=== PATIENT | male | born 1970 | race Caucasian/White ===

== ENCOUNTER 2016-10-07 19:33 | Emergency (ER) | payer BC ==
[~2016-10-07] VITALS: Ht 172.7 cm; Wt 79.2 kg
[~2016-10-07 19:33] MED LIST: ATOR10TA88 PO; BUPR-79 PO; ESCI1TAB6 PO
[2016-10-07 19:39] VITALS: Ht 172.7 cm; Wt 79.2 kg
[2016-10-07] MEDS ORDERED: MoRPHine SULFATE 4 MG/ML 1 ML CARP\\VIAL IV STA (20:14)
[2016-10-07] MEDS ORDERED: ACETAMINOPHEN 325 MG TAB PO STA (20:14)
[2016-10-07] MEDS ORDERED: SODIUM CHLORIDE 0.9% 1000ML 1,000 ML IV STA (20:14)
[2016-10-07] MEDS ORDERED: ONDANSETRON INJ 2 MG/ML 2 ML VIAL IV STA (20:14)
[2016-10-07] MEDS ORDERED: SODIUM CHLORIDE 0.9% 1000ML 1,000 ML IV ONE (20:14)
--- NOTE | 2016-10-07 20:28 | EMERGENCY ROOM VISIT NOTE ---
History Report prepared by Lesia: Kaye Johnson Under the Supervision of: Dr. Gianni Maldonado M.D. First contact with patient: 19:58 Chief Complaint: ABDOMINAL PAIN Stated Complaint: ABD PAIN History of Present Illness The patient is a 45 year old male who presents to the Emergency Room with complaints of waxing and waning abdominal pain beginning yesterday. The patient states that he has been having abdominal pain that is constantly there but worsens in waves. He complains of dysuria, fever, slight testicular pain, and nausea. He denies any back pain, trauma, vomiting, diarrhea, cough, and rash. The patient states that he has a history of hypertension and high cholesterol. He reports that he had an AST repair when he was a senior in high school but has not had any issues since. He notes that his pain is worsened with movement. Source of History: patient, spouse/significant other Onset: yesterday Position: abdomen Timing: waxes/wanes Modifying Factors (Worsening): movement Associated Symptoms: + fevers, + nausea, + urinary symptoms, No cough, No vomiting, No back pain, No diarrhea, No rash Note: Pt complains of slight testicular pain. He denies any trauma. Review of Systems See HPI for pertinent positives & negatives. A total of 10 systems reviewed and were otherwise negative. Past Medical & Surgical Medical Problems: (1) High cholesterol (2) HTN (hypertension) Old medical records were reviewed. Nurse's notes were reviewed and I agree with. Family History No pertinent family history stated. Social History Smoking Status: Never Smoker Marital Status: Housing Status: lives with family Occupation Status: employed Current/Historical Medications Scheduled Atorvastatin (Atorvastatin Calcium), 40 MG PO DAILY Ciprofloxacin Hcl (Cipro), 500 MG PO BID Fluoxetine HCl (Fluoxetine HCl), 10 MG PO DAILY Lisinopril (Zestril), 10 MG PO DAILY Metronidazole (Flagyl), 500 MG PO TID Scheduled PRN Oxycodone Immediate Rel Tab (Roxicodone Ir), 1-2 TAB PO Q4H PRN for Severe Pain Allergies Coded Allergies: No Known Allergies (Unverified , 02/11/15) Physical Exam Vital Signs Date Time Temp Pulse Resp B/P (MAP) Pulse Ox O2 Delivery O2 Flow Rate FiO2 10/07/16 22:36 37.8 90 18 128/82 93 Room Air 10/07/16 21:13 90 18 129/82 96 Room Air 10/07/16 19:39 38.4 94 20 132/84 96 Room Air Physical Exam General: Well developed well nourished non-ill appearing middle aged male in no acute distress, breathing comfortably on room air. Normal speech. He is complaining of lower abdominal pain. HEENT: Normal cephalic atraumatic. Pupils are equal round and reactive to light. Extraocular movements are intact. Oropharynx is pink with moist mucous membranes. No swelling of the mouth lips or tongue. Neck: Supple with a midline trachea. No meningeal signs or stiffness, no JVD or bruits. No Stridor. Chest: Clear to auscultation bilaterally. No wheezes or rhonchi. No increased work of breathing. Heart: regular rate and rhythm. Abdomen: Soft, moderate tenderness in lower abdomen more to the left, nondistended without rebound guarding or rigidity. No peritonitis Extremities: No cyanosis clubbing or edema. No calf tenderness or assymetry Spine/Back. Non tender to palpation. No CVA tenderness Skin: Good turgor without rashes. Neurologic exam: Cranial nerves two through 12 are intact. Motor and sensation are intact and symmetrical throughout. Medical Decision & Procedures ER Provider Diagnostic Interpretation: CT results as stated below per my review and radiologist interpretation: CT SCAN OF THE ABDOMEN AND PELVIS WITH IV CONTRAST FINDINGS: Lung bases: The patient is status post midline sternotomy. The heart is enlarged and without pericardial effusion. The lung bases are clear noting dependent atelectasis. Liver: The contrast-enhanced liver is enlarged, measuring 18 cm in length. The liver demonstrates diffusely diminished attenuation consistent with hepatic steatosis. Fatty sparing is noted adjacent to gallbladder fossa. There is no intrahepatic biliary ductal dilatation. The hepatic veins and portal veins are patent. Gallbladder: Unremarkable. Spleen: Normal in size and attenuation. Pancreas: Moderately atrophic and grossly unremarkable. Adrenal glands: Unremarkable. Kidneys: The contrast enhanced kidneys are normal in size and without hydronephrosis. The kidneys enhance symmetrically. Abdominal vasculature: The abdominal aorta is normal in course and caliber. Bowel: The small bowel and colon are normal in course and caliber. There is mild colonic diverticulosis. There is wall thickening with pericolic inflammation and fluid seen involving the distal descending/proximal sigmoid colon consistent with acute diverticulitis. No diverticular abscess is seen. The appendix is well-visualized and normal. Peritoneum: There is no intraperitoneal free air or abdominal ascites. There is a small fat-containing umbilical hernia. Lymphadenopathy: None. Pelvic viscera: The bladder, prostate, and seminal vesicles are normal as imaged. Surgical clips are noted along the spermatic cord. Skeletal structures: The skeletal structures are osteopenic. No lytic or blastic lesions are seen. IMPRESSION: 1. Findings are consistent with acute diverticulitis involving the distal descending/proximal sigmoid colon. No intraperitoneal free air is seen and there is no evidence of diverticular abscess. 2. Hepatomegaly and hepatic steatosis. 3. Cardiomegaly. 4. Additional findings as above. Electronically signed by: Farhan Pedro M.D. 10/07/2016 9:35 PM Dictated Date/Time: 10/07/2016 9:27 PM Laboratory Results 10/07/16 20:20 Red Blood Count 5.19, Mean Corpuscular Volume 86.9, Mean Corpuscular Hemoglobin 30.6, Mean Corpuscular Hemoglobin Concent 35.3, Mean Platelet Volume 9.0, Neutrophils (%) (Auto) 76.8, Lymphocytes (%) (Auto) 12.4, Monocytes (%) (Auto) 9.7, Eosinophils (%) (Auto) 0.7, Basophils (%) (Auto) 0.1, Neutrophils # (Auto) 6.83, Lymphocytes # (Auto) 1.10, Monocytes # (Auto) 0.86, Eosinophils # (Auto) 0.06, Basophils # (Auto) 0.01 10/07/16 20:20 Test 10/07/16 20:20 10/07/16 20:35 10/07/16 20:41 10/07/16 21:14 White Blood Count 8.89 K/uL (4.8-10.8) Red Blood Count 5.19 M/uL (4.7-6.1) Hemoglobin 15.9 g/dL (14.0-18.0) Hematocrit 45.1 % (42-52) Mean Corpuscular Volume 86.9 fL (80-100) Mean Corpuscular Hemoglobin 30.6 pg (25-34) Mean Corpuscular Hemoglobin Concent 35.3 g/dl (32-36) Platelet Count 135 K/uL (130-400) Mean Platelet Volume 9.0 fL (7.4-10.4) Neutrophils (%) (Auto) 76.8 % Lymphocytes (%) (Auto) 12.4 % Monocytes (%) (Auto) 9.7 % Eosinophils (%) (Auto) 0.7 % Basophils (%) (Auto) 0.1 % Neutrophils # (Auto) 6.83 K/uL (1.4-6.5) Lymphocytes # (Auto) 1.10 K/uL (1.2-3.4) Monocytes # (Auto) 0.86 K/uL (0.11-0.59) Eosinophils # (Auto) 0.06 K/uL (0-0.5) Basophils # (Auto) 0.01 K/uL (0-0.2) RDW Standard Deviation 40.0 fL (36.4-46.3) RDW Coefficient of Variation 12.5 % (11.5-14.5) Immature Granulocyte % (Auto) 0.3 % Immature Granulocyte # (Auto) 0.03 K/uL (0.00-0.02) Est Creatinine Clear Calc Drug Dose 82.0 ml/min Estimated GFR () 93.5 Estimated GFR (Non- 80.6 BUN/Creatinine Ratio 10.3 (10-20) Calcium Level 9.4 mg/dl (8.5-10.1) Total Bilirubin 0.9 mg/dl (0.2-1) Direct Bilirubin 0.2 mg/dl (0-0.2) Aspartate Amino Transf (AST/SGOT) 18 U/L (15-37) Alanine Aminotransferase (ALT/SGPT) 32 U/L (12-78) Alkaline Phosphatase 82 U/L (45-117) Total Protein 7.3 gm/dl (6.4-8.2) Albumin 4.0 gm/dl (3.4-5.0) Lipase 97 U/L (73-393) Bedside Lactic Acid Venous 1.48 mmol/L (0.90-1.70) Bedside Hemoglobin 15.0 g/dl (14.0-18.0) Bedside Hematocrit 44 % (42-52) Bedside Sodium 140 mEq/L (135-144) Bedside Potassium 4.0 mEq/L (3.3-5.0) Bedside Chloride 102 mEq/L (101-112) Bedside Total CO2 25 mEq/l (24-31) Anion Gap 18.0 mmol/L (16-25) Bedside Blood Urea Nitrogen 11 mg/dl (7-18) Bedside Creatinine 1.0 mg/dl (0.6-1.3) Bedside Glucose (other) 96 mg/dl (70-99) Bedside Ionized Calcium (Aguilar) 1.21 mmol/l (1.12-1.32) Urine Color YELLOW Urine Appearance CLEAR (CLEAR) Urine pH 7.5 (4.5-7.5) Urine Specific [place] 1.013 (1.000-1.030) Urine Protein NEG (NEG) Urine Glucose (UA) NEG (NEG) Urine Ketones NEG (NEG) Urine Occult Blood NEG (NEG) Urine Nitrite NEG (NEG) Urine Bilirubin NEG (NEG) Urine Urobilinogen NEG (NEG) Urine Leukocyte Esterase NEG (NEG) Laboratory studies as stated above per my review. Medications Administered Medications (Trade) Dose Ordered Sig/[place] Route Start Time Stop Time Status Last Admin Dose Admin Sodium Chloride 1,000 ml @ 999 mls/hr Q1H1M STAT IV 10/07/16 20:14 10/07/16 21:14 DC 10/07/16 21:05 999 MLS/HR Morphine Sulfate (MoRPHine SULFATE INJ) 4 mg NOW STAT IV 10/07/16 20:14 10/07/16 20:17 DC 10/07/16 21:05 4 MG Ondansetron HCl (Zofran Inj) 4 mg NOW STAT IV 10/07/16 20:14 10/07/16 20:17 DC 10/07/16 21:05 4 MG Acetaminophen (Tylenol Tab) 650 mg NOW STAT PO 10/07/16 20:14 10/07/16 20:17 DC 10/07/16 21:06 650 MG Metronidazole (Flagyl Tab) 500 mg NOW STAT PO 10/07/16 21:52 10/07/16 21:54 DC 10/07/16 22:32 500 MG Ciprofloxacin (Cipro Tab) 500 mg NOW STAT PO 10/07/16 21:52 10/07/16 21:54 DC 10/07/16 22:32 500 MG Oxycodone HCl (Roxicodone Immediate Rel 5MG Home Pack) 1 homepack UD ONCE PO 10/07/16 22:00 10/07/16 22:01 DC 10/07/16 22:33 1 HOMEPA ED Course 1957: Past medical records reviewed. The patient was evaluated in room B8, and a complete history and physical examination were performed. 2013: Tyenol Tab 650mg PO, Zofran Inj 4mg IV, Morphine Sulfate 4mg IV, Sodium Chloride 1000 ml @ 150 mls/hr IV, Sodium Chloride 1000 ml @ 999 mls/hr IV. 2151: The patient is feeling better and his abdomen is less tender he strongly wishes to go home. I discussed the plan and he will not drink alcohol while on Flagyl. 2200: Upon reevaluation, the patient is doing well. I discussed the results and treatment plan with the patient. He verbalized agreement of the treatment plan. The patient was discharged home. Medical Decision Differential diagnosis includes appendicitis, diverticulitis, colitis, hernia, electrolyte or metabolic abnormality. Medication Reconciliation: I attest that I have personally reviewed the patient' s current medication list. Blood pressure Screening: Patient was found to have normal blood pressure on screening and does not require follow-up. This patient comes in as described above he is left lower quadrant abdominal pain he has moderate tenderness. IV access established was hydrated IV normal saline bolus as well as morphine 4 mg IV and Zofran 4 mg IV. His white count is not elevated. He has no significant elevation of his lactic acid. He has no acute electrolyte or metabolic abnormalities. She has nothing to suggest UTI. CAT scan was obtained which shows this diverticulitis without evidence of perforation or abscess. He was given Cipro 500 mg and Flagyl 500 mg by mouth. He is feeling significant better and does not feel he needs to be admitted for pain management and strongly desires to go home. I think that this is reasonable with close follow-up. I talked to him about Cipro and Flagyl and told him that he cannot drink alcohol while on these medications. He aknowledges this and says this will not be a problem. I told him he should be feeling better the next 24-48 hours and he should get rechecked in that time as well. If he is not feeling better or has increasing pain or worsening symptoms , he should return to the ER. He should use [id number] Tylenol and/or ibuprofen for pain. For breakthrough pain, use OxyIR 5 mg one or 2 pills every 4-6 hours as needed. He was warned that OxyIR could make him drowsy and do not take before drinking, driving, working. He was happy with plan and discharged to home with close follow-up with his doctor. Impression Primary Impression: Acute diverticulitis Additional Impression: LLQ abdominal pain Scribe Attestation The scribe's documentation has been prepared under my direction and personally reviewed by me in its entirety. I confirm that the note above accurately reflects all work, treatment, procedures, and medical decision making performed by me. Departure Information Dispostion Home / Self-Care Prescriptions Metronidazole (Flagyl) 500 Mg Tab 500 MG PO TID for 10 Days, #30 TAB Prov: Gianni Maldonado M.D. 10/07/16 Ciprofloxacin Hcl (CIPRO) 500 Mg Tab 500 MG PO BID, #20 TAB Prov: Gianni Maldonado M.D. 10/07/16 Oxycodone Immediate Rel Tab (ROXICODONE IR) 5 Mg Tab 1-2 TAB PO Q4H Y for Severe Pain, #24 TAB Prov: Gianni Maldonado M.D. 10/07/16 Referrals Analilia Jordan D.O. (PCP) Forms Call Back Authorization, HOME CARE DOCUMENTATION FORM, IMPORTANT VISIT INFORMATION Patient Instructions My [facility] Additional Instructions Rest. Drink plenty of fluids. Use Cipro 500 mg twice a day for 10 daysantibiotic Use Flagyl 500 mg 3 times a day for 10 daysantibiotic Do not drink alcohol for the next 2 weeks while taking Flagyl. It will make you feel very ill. For pain, may use [id number] ibuprofen and/or Tylenol. Do not exceed the [id number] recommended dosages. For more severe pain may use OxyIR 5 mg, one or 2 pills every 4-6 hours as needed OxyIR may make you drowsy and do not take before drinking, driving, working Return if: Increasing pain, worsening of symptoms, failure of symptoms to resolve in the next 1-2 days, any new problems or concerns Follow-up with your doctor in 1-2 days for recheck Problem Qualifiers
[2016-10-07] MEDS ORDERED: LISI-461 PO (20:39)
[2016-10-07 20:46] LABS: BASO % 0.1 %; BASO ABS # 0.01 K/uL (0-0.2); COMPLETE YES; EOS % 0.7 %; HEMATOCRIT 45.1 % (42-52); IG% 0.3 %; LYMPH % 12.4 %; MEAN CELL VOLUME 86.9 fL (80-100); MEAN CORPUSCULAR HEMOGLOBIN 30.6 pg (25-34); MEAN CORPUSCULAR HGB CONC 35.3 g/dl (32-36); MONO % 9.7 %; NEUT % 76.8 %; PLATELET COUNT 135 K/uL (130-400); RED BLOOD COUNT 5.19 M/uL (4.7-6.1); WHITE BLOOD COUNT 8.89 K/uL (4.8-10.8)
[2016-10-07 20:53] LABS: ISTAT IONIZED CALCIUM 1.21 mmol/l (1.12-1.32)
[2016-10-07] MEDS ORDERED: LPT40 PO (20:57)
[2016-10-07] MEDS ORDERED: FLUO10CA24 PO (20:57)
[2016-10-07 21:07] LABS: BUN/CREATININE RATIO 10.3 (10-20); CALCIUM 9.4 mg/dl (8.5-10.1); CREATININE 1.1 mg/dl (0.60-1.40)
[2016-10-07] MEDS ORDERED: OPTIRAY 320 IV PRN (21:30)
--- NOTE | 2016-10-07 21:37 | DIAGNOSTIC IMAGING REPORT ---
CT SCAN OF THE ABDOMEN AND PELVIS WITH IV CONTRAST CLINICAL HISTORY: Generalized abdominal pain. COMPARISON STUDY: Abdominal radiographs dated 08/16/2009. TECHNIQUE: Following the IV administration of 116 cc of Optiray 320, CT scan of the abdomen and pelvis is performed from the lung bases to the proximal femora. Images are reviewed in the axial, sagittal, and coronal planes. IV contrast was administered without complication. Automated dose control exposure was utilized. CT DOSE: 312.86 mGy.cm FINDINGS: Lung bases: The patient is status post midline sternotomy. The heart is enlarged and without pericardial effusion. The lung bases are clear noting dependent atelectasis. Liver: The contrast-enhanced liver is enlarged, measuring 18 cm in length. The liver demonstrates diffusely diminished attenuation consistent with hepatic steatosis. Fatty sparing is noted adjacent to gallbladder fossa. There is no intrahepatic biliary ductal dilatation. The hepatic veins and portal veins are patent. Gallbladder: Unremarkable. Spleen: Normal in size and attenuation. Pancreas: Moderately atrophic and grossly unremarkable. Adrenal glands: Unremarkable. Kidneys: The contrast enhanced kidneys are normal in size and without hydronephrosis. The kidneys enhance symmetrically. Abdominal vasculature: The abdominal aorta is normal in course and caliber. Bowel: The small bowel and colon are normal in course and caliber. There is mild colonic diverticulosis. There is wall thickening with pericolic inflammation and fluid seen involving the distal descending/proximal sigmoid colon consistent with acute diverticulitis. No diverticular abscess is seen. The appendix is well-visualized and normal. Peritoneum: There is no intraperitoneal free air or abdominal ascites. There is a small fat-containing umbilical hernia. Lymphadenopathy: None. Pelvic viscera: The bladder, prostate, and seminal vesicles are normal as imaged. Surgical clips are noted along the spermatic cord. Skeletal structures: The skeletal structures are osteopenic. No lytic or blastic lesions are seen. IMPRESSION: 1. Findings are consistent with acute diverticulitis involving the distal descending/proximal sigmoid colon. No intraperitoneal free air is seen and there is no evidence of diverticular abscess. 2. Hepatomegaly and hepatic steatosis. 3. Cardiomegaly. 4. Additional findings as above. Electronically signed by: Farhan Pedro M.D. 10/07/2016 9:35 PM Dictated Date/Time: 10/07/2016 9:27 PM
[2016-10-07 21:43] LABS: URINE APPEARANCE CLEAR (CLEAR); URINE BILIRUBIN NEG (NEG); URINE COLOR YELLOW; URINE NITRITE NEG (NEG); URINE PH 7.5 (4.5-7.5); URINE SPECIFIC GRAVITY 1.013 (1.000-1.030); UROBILINOGEN NEG (NEG)
[2016-10-07 21:50] LABS: MANUAL MICROSCOPIC REQUIRED? NO; REVIEW REQ? NO
[2016-10-07] MEDS ORDERED: METRONIDAZOLE 250 MG TAB PO STA (21:52)
[2016-10-07] MEDS ORDERED: CIPROFLOXACIN 500 MG TAB PO STA (21:52)
[2016-10-07] MEDS ORDERED: CIPR-255 PO (21:58)
[2016-10-07] MEDS ORDERED: OXYC1TAB3 PO (21:58)
[2016-10-07] MEDS ORDERED: METR-163 PO (21:58)
[2016-10-07] MEDS ORDERED: OXYCODONE IR HOME PACK PO ONE (22:00)
[2016-10-07 22:36] VITALS: BP 128/82; PULSE 90; TEMP 37.8; O2SAT 93
== END 2016-10-07 22:40 | disposition home or self-care (01) ==
LOC: C.EDB 19:34
DX: K57.92 Diverticulitis of intestine, part unspecified, without perforation or abscess without bleeding (principal); R10.32 Left lower quadrant pain; I10 Essential (primary) hypertension; E78.5 Hyperlipidemia, unspecified